=== PATIENT | female | born 1985 | race Caucasian/White ===

== ENCOUNTER → 2020-02-18 13:25 | Outpatient (BNVA) | payer OTHER, SELFPAY | PROVIDERS: Visit Provider Nurse Practitioner Family | DX: Z20.828 Contact with and (suspected) exposure to other viral communicable diseases (principal) | CPT/HCPCS: 87635 ==

== ENCOUNTER 2021-01-11 07:51 | Outpatient (CLI) | payer OTHER, SELFPAY ==
--- NOTE | 2021-01-11 08:00 | USCV_ITS ---
Zonia Trimble Age: 35 Gender: F : 1985 Exam Date: 01/11/2021 08:18 Ordering Phys: Darin Sepulveda MD Technologist: Exam Location: [facility] [place] [facility] [place]ication: rt leg pain HISTORY: Lower extremity pain. PROCEDURES: Venous duplex imaging was performed in only the right lower extremity. The following venous structures were evaluated: common femoral vein, profunda vein, proximal portion of the greater saphenous vein, superficial femoral vein, and the popliteal vein. In addition, the posterior tibial and peroneal trunk were evaluated. On the right side, the common femoral, superficial femoral, profunda femoral, popliteal, posterior tibial, greater saphenous veins and the peroneal trunk were identified and interrogated in the standard fashion. These veins were found to be easily compressible with spontaneous blood flow. No evidence of insufficiency or thrombus noted. FINDINGS: Normal 2-D Doppler and augmentation and compressibility throughout the lower extremity venous structures. Additional imaging through the proximal calf veins also reveals no thrombus. Limited evaluation of the greater saphenous vein is patent with no thrombus.. CONCLUSIONS No evidence of right lower extremity DVT. Js Dugan MD (Electronically Signed) Final Date: 12 January 2021 09:46 S
== END 2021-01-11 07:52 | disposition home or self-care (01) ==
LOC: RAD 07:55
PROVIDERS: PCP Family Medicine; Visit Provider Family Medicine
DX: M79.89 Other specified soft tissue disorders (principal); M79.604 Pain in right leg
CPT/HCPCS: 93971

== ENCOUNTER → 2021-03-18 12:31 | Outpatient (BNVA) | payer OTHER, SELFPAY | PROVIDERS: PCP Family Medicine; Visit Provider Registered Nurse Neonatal Intensive Care | DX: Z20.822 Contact with and (suspected) exposure to COVID-19 (principal) | CPT/HCPCS: 87400; 87635 ==

== ENCOUNTER → 2021-10-26 15:44 | Outpatient (BNVA) | payer OTHER, SELFPAY | PROVIDERS: PCP Family Medicine; Visit Provider Registered Nurse Neonatal Intensive Care | DX: B34.9 Viral infection, unspecified (principal); Z20.822 Contact with and (suspected) exposure to COVID-19 | CPT/HCPCS: 87400; 87635 ==

== ENCOUNTER 2021-12-29 12:39 | Emergency (ER) | payer OTHER, SELFPAY ==
[2021-12-29 12:44] VITALS: BP 109/70; PULSE 78; RESP 16; TEMP 36.9; O2SAT 99; BMI 20.9
--- NOTE | 2021-12-29 12:56 | W.ED.ABDPA2 ---
HPI - Abdominal Pain General: Chief Complaint: Abdominal Pain Stated Complaint: ABD pains Time Seen by Provider: 12/29/21 12:52 Source: patient Mode of arrival: ambulatory History of Present Illness: 56-year-old female presents emergency room complaining of left lower quadrant pain pelvic pain that began 3 days ago. Increases with cough or movement. Bowel and bladder function have been normal. She denies any dysuria urgency or frequency. Her last menstrual period was normal and began in the late November. She states she is due within the next week to have her next menstrual period. She previously has had a tubal ligation. MD elicited complaint: abdominal pain (Left pelvic pain) Onset (ago): day(s) (3) Pain Consistency: intermittent Location: Pelvis (Left) Severity: moderate Quality: cramping Radiation: other (Left pelvis) Migration to: no migration Exacerbating factors: movement Relieving factors: nothing Associated Symptoms: Denies anorexia, belching, bloating, change in bowel habits, change in stool character, chills, coffee ground emesis, constipation, GI cramping, diarrhea, dyspepsia, dysuria, excessive flatus, fever(s), heartburn, hematochezia, hematuria, hematemesis, fecal incontinence, loose stools, melena, nausea, poor appetite, syncope and vomiting Related Data: Date of Last Menstrual Period: 12/03/21 Review of Systems Const: Denies: fever(s), chills, fatigue or malaise ENMT: Denies: throat pain, ear or mastoid pain, nasal discharge or nasal congestion Card: Denies: syncope Resp: Denies: dyspnea, productive cough or non-productive cough GI: Reports: abdominal pain; Denies: nausea, vomiting, hematemesis, coffee ground emesis, heartburn, diarrhea, constipation, bloating, GI cramping, belching, excessive flatus, fecal incontinence, change in bowel habits, change in stool character, hematochezia or melena : Reports: pelvic pain; Denies: flank pain, difficulty voiding, dysuria, urinary frequency, urinary urgency or hematuria Skin/Breast: Denies: rash or pruritus PFS ED PFSH: Medical History Anxiety Family conflict Marital conflict Psychiatric care Social History (Reviewed 12/25/21 @ 12:56 by Hilaria Jimenez Smoking and tobacco status: never smoked Female Reproductive History: Date of last menstrual period: 12/03/21 Physical Exam Const: COMMON NORMALS: no acute distress GENERAL APPEARANCE: cooperative and comfortable ORIENTATION/CONSCIOUSNESS: Yes awake, Yes oriented to person, Yes oriented to place and Yes oriented to time HENMT: COMMON NORMALS: normocephalic, atraumatic and hearing grossly normal bilaterally HEAD & SCALP: normocephalic and atraumatic Neck/C-Spine: COMMON NORMALS: full ROM, no lymphadenopathy, supple and no JVD Lymph: LYMPHATIC: no lymphadenopathy noted and no lymphedema noted Resp: COMMON NORMALS: normal respiratory effort, No retractions, No use of accessory muscles and clear to auscultation bilaterally AUSCULTATION: clear to auscultation bilaterally Cardio: COMMON NORMALS: no JVD, regular rate, regular rhythm and No murmurs present (Cardio) RATE: regular rate RHYTHM: regular rhythm GI: COMMON NORMALS: Soft to palpation and No hepatosplenomegaly present AUSCULTATION: Yes normoactive bowel sounds PALPATION: Yes Soft to palpation, No Tenderness to palpation present (GI), No Guarding due to palpation present (GI) and Yes No hepatosplenomegaly present Extremity: COMMON NORMALS: normal to inspection, capillary refill normal, no clubbing, cyanosis or edema, no calf tenderness and no pedal edema Neuro: SENSORIUM/ORIENTATION: Yes oriented to person, Yes oriented to place and Yes oriented to time Skin: COMMON NORMALS: no rashes or lesions noted GENERAL SKIN EXAM: no rashes or lesions noted Course Vital Signs: Vital signs: Vital Signs Temperature 98.4 F 12/29/21 12:44 Pulse Rate 88 12/29/21 14:22 Respiratory Rate 18 12/29/21 14:22 Blood Pressure 119/83 12/29/21 14:22 Pulse Oximetry 99 12/29/21 14:22 Oxygen Delivery Me thod 12/29/21 14:22 MDM - Abdominal Pain Medical Decision Making Ultrasound negative abdominal exam unremarkable White count normal. Patient has follow-up appointment with primary care later this week discharged from here no emergent findings made. Medical Records I reviewed the patient's medical records. Lab Data I reviewed the patient's lab results. : 12/29/21 13:11 12/29/21 13:11 Labs/Radiology: Laboratory Results WBC 5.5 10^3/uL (4.0-10.0) 12/29/21 13:11 RBC 4.42 10^6/uL (4.1-5.3) 12/29/21 13:11 Hgb 13.1 g/dL (11.5-15.3) 12/29/21 13:11 Hct 39.7 % (37.0-47.0) 12/29/21 13:11 MCV 89.8 fl (81-99) 12/29/21 13:11 MCH 29.6 pg (28.0-34.0) 12/29/21 13:11 MCHC 33.0 g/dL (30.0-36.0) 12/29/21 13:11 RDW 12.8 % (12.1-15.1) 12/29/21 13:11 Plt Count 287 10^3/cmm (130-400) 12/29/21 13:11 MPV 9.7 fL (7.4-10.4) 12/29/21 13:11 Neut % (Auto) 50.2 % 12/29/21 13:11 Lymph % (Auto) 39.5 % 12/29/21 13:11 Wells % (Auto) 7.4 % 12/29/21 13:11 Eos % (Auto) 1.6 % 12/29/21 13:11 Baso % (Auto) 1.1 % 12/29/21 13:11 Neut # (Auto) 2.78 10^3/uL (1.8-7.7) 12/29/21 13:11 Lymph # (Auto) 2.2 10^3/uL (0.8-4.8) 12/29/21 13:11 Wells # (Auto) 0.4 10^3/uL (0.2-0.9) 12/29/21 13:11 Eos # (Auto) 0.1 10^3/uL (0.0-0.8) 12/29/21 13:11 Baso # (Auto) 0.1 10^3/uL (0.0-0.1) 12/29/21 13:11 Nucleated RBC % (auto) 0 % 12/29/21 13:11 Nucleated RBCs # 0.0 /100WBC 12/29/21 13:11 Sodium 137 mmol/L (136-145) 12/29/21 13:11 Potassium 3.4 mmol/L (3.5-5.1) L 12/29/21 13:11 Chloride 104 mmol/L (98-107) 12/29/21 13:11 Carbon Dioxide 22 mmol/L (22-29) 12/29/21 13:11 Anion Gap 14.4 (5-19) 12/29/21 13:11 BUN 9 mg/dL (6-20) 12/29/21 13:11 Creatinine 0.8 mg/dL (0.5-0.9) 12/29/21 13:11 GFR Calculation 80.7 mL/min (90-130) L 12/29/21 13:11 Glucose 106 mg/dL (65-115) 12/29/21 13:11 Calculated Osmolality 283 mOsm/kg (285-295) L 12/29/21 13:11 Calcium 8.9 mg/dL (8.5-10.5) 12/29/21 13:11 Total Bilirubin 0.4 mg/dL (0.15-1.2) 12/29/21 13:11 AST 15 U/L (0-32) 12/29/21 13:11 ALT 12 U/L (0-33) 12/29/21 13:11 Alkaline Phosphatase 68 U/L (35-105) 12/29/21 13:11 Total Protein 6.7 g/dL (6.6-8.7) 12/29/21 13:11 Albumin 4.1 g/dL (3.5-5.2) 12/29/21 13:11 Globulin 2.6 g/dL (1.3-4.6) 12/29/21 13:11 Lipase 21 U/L (13-60) 12/29/21 13:11 HCG, Qual Negative (Negative) 12/29/21 13:11 Urine Color Yellow (Yellow) 12/29/21 13:10 Urine Appearance Clear (CLEAR) 12/29/21 13:10 Urine pH 5 (5-7) 12/29/21 13:10 Ur Specific Valentine 1.030 (1.005-1.030) 12/29/21 13:10 Urine Protein Neg (Negative) 12/29/21 13:10 Urine Glucose (UA) Norm (Normal) 12/29/21 13:10 Urine Ketones Negative (Negative) 12/29/21 13:10 Urine Blood Neg (Negative) 12/29/21 13:10 Urine Nitrate Negative (Negative) 12/29/21 13:10 Urine Bilirubin Neg (Negative) 12/29/21 13:10 Urine Urobilinogen Neg mg/dL (Negative) 12/29/21 13:10 Ur Leukocyte Esterase Negative (Negative) 12/29/21 13:10 Discharge Plan Discharge Patient Disposition: Home Clinical Impression: Pelvic pain Condition: Stable Prescriptions: No Action dextroamphetamine-amphetamine 10 mg tablet 10 mg PO QAM 30 Days Qty: 30 0RF mirtazapine 15 mg tablet 15 mg PO .qhs 30 Days Qty: 30 3RF Discharge Orders: Discharge ED (Routine); Ordered 12/29/21 Ordered By: Michele Rodriguez Referrals: Darin Sepulveda MD [Primary Care Provider] - Discharge Diet: Usual diet Discharge Activity: Increase activity as tolerated Patient Instructions: Opioid Safety, Pain Management Coding Level of Care Code ED Contour Stitcher for Chg Fwd Exam Comprehensive
--- NOTE | 2021-12-29 13:03 | USR_ITS ---
PROCEDURE INFORMATION: Exam: US Pelvis, Transvaginal Exam date and time: 12/29/2021 1:27 PM Age: 36 years old Clinical indication: Pelvic pain; Prior surgery; Surgery type: Patient has a history of tubal ligation TECHNIQUE: Imaging protocol: Real-time transvaginal pelvic ultrasound with image documentation. Transvaginal imaging was used for better evaluation of the endometrium, adnexa, and/or cervix. COMPARISON: None FINDINGS: Uterus: Uterus measures 9.0 x 4.7 x 6.2 cm. Endometrium measures 13 mm in diameter, which is upper limits of normal for an actively menstruating female. Cervix: Subcentimeter nabothian cysts. Right ovary/adnexa: Right ovary measures 2.5 x 1.7 x 1.9 cm. Subcentimeter follicles. Right ovarian blood flow demonstrated. Left ovary/adnexa: Left ovary measures 1.8 x 1.6 x 2.0 cm. Subcentimeter follicles. Left ovarian blood flow demonstrated. Intraperitoneal space: No significant free fluid. US/US transvaginal [id number] IMPRESSION: No acute sonographic abnormality in the visualized pelvis.
[2021-12-29 13:14] VITALS: BP 121/82; PULSE 100; RESP 18; O2SAT 100
[2021-12-29] MEDS: lactated ringers 1,000 ML 999 ML IV (13:16)
[2021-12-29 13:17] LABS: Add Urine Microscopic? NO; Charge for UA Resulting for Rev
[2021-12-29 13:24] LABS: Basophils # 0.1 10^3/uL (0.0-0.1); Basophils % 1.1 %; Eosinophils # 0.1 10^3/uL (0.0-0.8); Eosinophils % 1.6 %; Hematocrit 39.7 % (37.0-47.0); Hemoglobin 13.1 g/dL (11.5-15.3); Lymphocytes # 2.2 10^3/uL (0.8-4.8); Lymphocytes % 39.5 %; Mean Corpuscular Hemoglobin 29.6 pg (28.0-34.0); Mean Corpuscular Volume 89.8 fl (81-99); Mean Platelet Volume 9.7 fL (7.4-10.4); Monocytes # 0.4 10^3/uL (0.2-0.9); Monocytes % 7.4 %; Neutrophils # 2.78 10^3/uL (1.8-7.7); Neutrophils % 50.2 %; Nucleated Red Blood Cells % 0 %; Platelet Count 287 10^3/cmm (130-400); Red Blood Count 4.42 10^6/uL (4.1-5.3); Red Cell Distribution Width 12.8 % (12.1-15.1); White Blood Count 5.5 10^3/uL (4.0-10.0)
[2021-12-29 13:28] LABS: Bilirubin Urine Neg (Negative); Blood Urine Neg (Negative); Glucose Urine UA Norm (Normal); Ketones Urine Negative (Negative); Leukocyte Esterase Urine Negative (Negative); Nitrate Urine Negative (Negative); Protein Urine Neg (Negative); Urine Appearance Clear (CLEAR); Urine Color Yellow (Yellow); Urobilinogen Urine Neg (Negative); pH Urine 5 (5-7)
[2021-12-29 13:53] LABS: HCG, Serum Qual Negative (Negative)
[2021-12-29 14:03] LABS: Alanine Aminotransferase 12 U/L (0-33); Albumin Level 4.1 g/dL (3.5-5.2); Alkaline Phosphatase 68 U/L (35-105); Anion Gap 14.4 (5-19); Aspartate Amino Transferase 15 U/L (0-32); Blood Urea Nitrogen 9 mg/dL (6-20); Calcium 8.9 mg/dL (8.5-10.5); Carbon Dioxide 22 mmol/L (22-29); Chloride 104 mmol/L (98-107); Globulin 2.6 g/dL (1.3-4.6); Glomerular Filtration Rate 80.7 mL/min (90-130); Glucose 106 mg/dL (65-115); Lipase 21 U/L (13-60); Osmolality Calculated 283 mOsm/kg (285-295); Potassium 3.4 mmol/L (3.5-5.1); Sodium 137 mmol/L (136-145); Total Bilirubin 0.4 mg/dL (0.15-1.2); Total Protein 6.7 g/dL (6.6-8.7)
[2021-12-29 14:22] VITALS: BP 119/83; PULSE 88; RESP 18; O2SAT 99
== END 2021-12-29 14:28 | disposition home or self-care (01) ==
PROVIDERS: Emergency Provider Family Medicine; PCP Family Medicine
DX: R10.2 Pelvic and perineal pain (principal)
CPT/HCPCS: 76830; 80053; 81003; 83690; 84703; 85025; 96360; 99284

== ENCOUNTER 2022-01-16 16:04 | Outpatient (CLI) | payer OTHER, SELFPAY ==
--- NOTE | 2022-01-16 16:27 | XRR_ITS ---
PROCEDURE INFORMATION: Exam: XR Chest Exam date and time: 01/16/2022 4:28 PM Age: 36 years old Clinical indication: Other: Abnormal lung sounds TECHNIQUE: Imaging protocol: Radiologic exam of the chest. Views: 2 views. COMPARISON: No relevant prior studies available. FINDINGS: Lungs: Peribronchial thickening. Hyperinflated lungs. No consolidation. Pleural spaces: Unremarkable. No pleural effusion. No pneumothorax. Heart/Mediastinum: Unremarkable. No cardiomegaly. Bones/joints: Unremarkable. XR/XR chest 2V* [id number] IMPRESSION: Peribronchial thickening suggestive of an infectious or inflammatory bronchitis. Hyperinflated lungs.
== END 2022-01-16 16:05 | disposition home or self-care (01) ==
PROVIDERS: PCP Family Medicine; Visit Provider Clinical Nurse Specialist Adult Health
DX: J18.9 Pneumonia, unspecified organism (principal)
CPT/HCPCS: 71046; 87880

== ENCOUNTER → 2023-07-09 10:26 | Outpatient (BNVA) | payer OTHER, SELFPAY | PROVIDERS: PCP Family Medicine; Visit Provider Family Medicine | DX: Z51.81 Encounter for therapeutic drug level monitoring (principal); G25.81 Restless legs syndrome; R10.9 Unspecified abdominal pain; R19.8 Other specified symptoms and signs involving the digestive system and abdomen; R19.7 Diarrhea, unspecified | CPT/HCPCS: 80053; 83735; 85025 ==

== ENCOUNTER → 2023-08-11 15:05 | Outpatient (BNVA) | payer OTHER, SELFPAY | PROVIDERS: PCP Family Medicine; Visit Provider Family Medicine | DX: G25.81 Restless legs syndrome (principal) | CPT/HCPCS: 82607 ==

== ENCOUNTER 2023-12-06 11:08 | Emergency (ER) | payer OTHER, SELFPAY ==
[2023-12-06 11:33] VITALS: BP 113/78; PULSE 70; RESP 18; TEMP 37.2; O2SAT 100; BMI 19.1
--- NOTE | 2023-12-06 13:00 | XRR_ITS ---
PROCEDURE INFORMATION: Exam: XR Lumbosacral Spine Exam date and time: 12/06/2023 1:12 PM Age: 38 years old Clinical indication: Lumbago; Patient HX: Lower back pain; No known injury TECHNIQUE: Imaging protocol: Radiologic exam of the lumbosacral spine. Views: 2 or 3 views. COMPARISON: No relevant prior studies available. FINDINGS: Bones/joints: Normal. No acute fracture. Normal alignment. Soft tissues: Unremarkable. XR/XR lumbar spine 2-3V* [id number] IMPRESSION: No acute findings.
--- NOTE | 2023-12-06 13:01 | W.ED.BACK ---
HPI - Back Pain/Injury General: Chief Complaint: Back Pain/Injury Stated Complaint: Low back pain Time Seen by Provider: 12/06/23 12:43 History of Present Illness: 38-year-old female who presents with low back pain. The pain has been present for the past week. 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 She was given a shot of steroids and a shot of Toradol few days ago with minimal improvement. She has been taking Tylenol and ibuprofen without improvement. The pain is localized to her lower lumbar and right paraspinous muscle region. She has no radiation of the pain. She has no associated abdominal pain. No hematuria, dysuria or increased urinary frequency. No prior history of kidney stones. She denies loss of bowel or bladder control. She denies extremity weakness. She is scheduled to see her primary care provider this upcoming week. Related Data Previous Rx's Medication Instructions Recorded omeprazole 40 mg capsule,delayed 40 mg PO DAILY #30 caps 07/09/23 release ibuprofen 800 mg tablet 800 mg PO Q8H PRN pain #30 tabs 09/06/23 buspirone 5 mg tablet 5 mg PO BID PRN anxiety #60 tabs 09/29/23 citalopram 10 mg tablet 10 mg PO DAILY #30 tabs 10/15/23 doxylamine succinate 25 mg tablet 25 mg PO .QHS PRN sleep #30 tabs 10/15/23 (Sleep Aid (doxylamine)) ondansetron HCl 4 mg tablet 4 mg PO Q8H PRN nausea and 10/17/23 vomiting #30 tabs ropinirole 0.25 mg tablet 0.25 mg PO .QHS #30 tabs 10/29/23 zolpidem 12.5 mg tablet,extended 12.5 mg PO .QHS #30 tabs 10/29/23 release,multiphase (Ambien CR) cyclobenzaprine 10 mg tablet 10 mg PO TID PRN muscle spasm #30 12/06/23 tabs hydrocodone 5 mg-acetaminophen 325 1 tab PO Q4H PRN pain #14 tabs 12/06/23 mg tablet ibuprofen 800 mg tablet 800 mg PO TID #30 tabs 12/06/23 prednisone 50 mg tablet 50 mg PO DAILY 7 days #7 tabs 12/06/23 Allergies Allergy/AdvReac Type Severity Reaction Status Date / Time No Known Allergies Allergy Verified 09/29/23 14:47 Review of Systems General: Reports: 10 or more systems reviewed and unremarkable except in HPI and below PFSH ED PFSH: Medical History HLA B27 (HLA B27 positive) Anxiety Family conflict Marital conflict Surgical History History of bilateral tubal ligation Family History Father GERD (gastroesophageal reflux disease) Social History Smoking and tobacco/nicotine status: never used tobacco/nicotine Alcohol intake: never Substance/Drug Use: current Other substance/drug use details: Patient has a medical card. Physical Exam Const: COMMON NORMALS: healthy appearing and well nourished Resp: COMMON NORMALS: normal respiratory effort and clear to auscultation bilaterally AUSCULTATION: clear to auscultation bilaterally Cardio: COMMON NORMALS: S1 normal heart sound present and S2 normal heart sound present HEART SOUNDS: S1 normal heart sound present and S2 normal heart sound present GI: COMMON NORMALS: Normal to inspection, nondistended, normoactive bowel sounds present, Soft to palpation, non-tender and no masses PALPATION: Yes Soft to palpation Back/Pelvis: OTHER: No tenderness in the lumbar spine or paraspinous muscular region bilaterally. No SI joint tenderness. Negative Baldomero's test. Negative straight leg raise bilaterally. Motor function intact bilaterally in her upper and lower extremities. Intact sensation. Deep tendon reflexes are normal. Extremity: OTHER: Bilateral lower extremity strength intact. No tenderness, no swelling or deformity. Intact distal pulses. Neuro: OTHER: Normal upper and lower extremity motor and sensory function, normal reflexes Course ED course: Patient has been given IM morphine in the emergency department with improvement of her pain. X-rays of the lumbosacral spine have been obtained and are negative for acute findings. Will discharge the patient with prednisone to take 50 mg daily for 7 days. Of also given her Flexeril to take 3 times daily as needed for muscle spasm. Ibuprofen 800 mg 3 times daily for inflammation and [place] 5 to take every 4-6 hours as needed for severe pain. Have instructed her to rest. Avoid lifting over 20 pounds. Return if her symptoms are worsening. Follow-up this next week with her primary care provider. Return if she has increased pain, weakness, loss of bowel or bladder control Vital Signs: Vital signs: Vital Signs Temperature 98.9 F 12/06/23 11:33 Pulse Rate 70 12/06/23 11:33 Respiratory Rate 16 12/06/23 13:19 Blood Pressure 113/78 12/06/23 11:33 Pulse Oximetry 97 12/06/23 13:19 Oxygen Delivery Me thod Room Air 12/06/23 11:33 MDM - Back Pain/Injury Medical Decision Making Given the patient's history of being positive for HLA-B27, concern for possible ankylosing spondylitis. Patient denies trauma. Will obtain screening lumbosacral spine x-rays for possible ankylosing spondylitis. Will give her IM morphine for pain. Plan for discharge with steroids, anti-inflammatories, muscle relaxants and pain medications. Labs Radiology Impressions Lumbar Spine X-Ray 12/06/23 13:00 IMPRESSION: No acute findings. All radiology interpretation(s) finalized by discharge ED provider radiology interpretation(s): X-rays of the lumbosacral spine have been obtained and primary to rotation are negative for acute fracture or subluxation. Per radiology, the x-rays are negative as well. Discharge Plan Discharge Patient Disposition: Home Clinical Impression: Low back pain, HLA B27 (HLA B27 positive) Condition: Stable Prescriptions: New cyclobenzaprine 10 mg tablet 10 mg PO TID PRN (Reason: muscle spasm) Qty: 30 0RF prednisone 50 mg tablet 50 mg PO DAILY 7 Days Qty: 7 0RF ibuprofen 800 mg tablet 800 mg PO TID Qty: 30 0RF hydrocodone-acetaminophen 5-325 mg tablet 1 tab PO Q4H PRN (Reason: pain) Qty: 14 0RF No Action omeprazole 40 mg capsule,delayed release(DR/EC) 40 mg PO DAILY Qty: 30 3RF Sleep Aid (doxylamine) 25 mg tablet 25 mg PO .QHS PRN (Reason: sleep) Qty: 30 2RF citalopram 10 mg tablet 10 mg PO DAILY Qty: 30 3RF buspirone 5 mg tablet 5 mg PO BID PRN (Reason: anxiety) Qty: 60 0RF ibuprofen 800 mg tablet 800 mg PO Q8H PRN (Reason: pain) Qty: 30 0RF ondansetron HCl 4 mg tablet 4 mg PO Q8H PRN (Reason: nausea and vomiting) Qty: 30 2RF zolpidem [Ambien CR] 12.5 mg tablet,ext release multiphase 12.5 mg PO .QHS Qty: 30 1RF ropinirole 0.25 mg tablet 0.25 mg PO .QHS Qty: 30 1RF Discharge Orders: Discharge ED (Routine); Ordered 12/06/23 Ordered By: Jessenia Hopkins Referrals: Darin Sepulveda MD [Primary Care Provider] - Discharge Diet: Advance as tolerated Discharge Activity: Increase activity as tolerated Patient Instructions: Acute Low Back Pain (ED), Opioid Safety, Pain Management Activity Restrictions/Additional Instructions: Home to rest. Take the medications as prescribed. Ice to the affected areas. Take the prednisone daily in the morning. Take the ibuprofen 3 times daily. Take the Flexeril 3 times daily as needed for muscle spasm. You can take the [place] every 4-6 hours as needed for severe pain. Return if you are having increased pain, weakness, loss of bowel or bladder control. Follow-up this next week with your primary care provider Stand Alone Forms: Work/School Release Coding Level of Care Code ED Errand Runner for [place]
[2023-12-06 13:19] VITALS: RESP 16; O2SAT 97
[2023-12-06] MEDS: morphine 4 mg/mL SDV 1 mL IM (13:19)
== END 2023-12-06 14:50 | disposition home or self-care (01) ==
PROVIDERS: Emergency Provider Emergency Medicine; PCP Family Medicine
DX: M54.50 Low back pain, unspecified (principal)
CPT/HCPCS: 72100; 96372; 99284; J2270

== ENCOUNTER 2024-07-26 13:30 | Outpatient (CLI) | payer OTHER, SELFPAY ==
--- NOTE | 2024-07-26 14:03 | MM_ITS ---
WS: [id number] BILATERAL 3D TOMOSYNTHESIS DIGITAL DIAGNOSTIC MAMMOGRAPHY WITH CAD CLINICAL INFORMATION: LT BREAST LUMP 6:00 HISTORY: LEFT breast lump COMPARISON: Baseline TECHNIQUE: Bilateral CC, MLO, and ML views. FINDINGS: The breasts are composed of heterogeneous fibroglandular density, which can limit the detection of small underlying mass lesions. Palpable marker inferior LEFT breast. Dense Parenchymal tissue. Nodularity central LEFT breast. ULTRASOUND BREAST LEFT TECHNIQUE: Ultrasound left breast focused area of concern. CLINICAL INFORMATION: LT BREAST LUMP 6:00 FINDINGS: Ultrasound LEFT breast at the 6 o'clock position inferior quadrant 4 cm from the nipple. Ultrasound performed from the 8 to 4 o'clock position. Tiny cyst at the 6 o'clock position 2 cm from the nipple measuring 7 x 2 x 4 mm. No other suspicious abnormalities. Recommend return to annual screening mammography. MM/MM diag BI tomosynthesis [id number] IMPRESSION: DENSITY: The breasts are heterogeneously dense, which may obscure small masses. BI-RADS: 2 - Benign FOLLOW UP: 1 Year Follow-up Recommend return to annual screening mammography.
== END 2024-07-26 13:31 | disposition home or self-care (01) ==
PROVIDERS: PCP Family Medicine; Visit Provider Advanced Practice Midwife
DX: N63.25 Unspecified lump in the left breast, overlapping quadrants (principal); R92.333 Mammographic heterogeneous density, bilateral breasts
CPT/HCPCS: 76642; 77062; G0279

== ENCOUNTER 2024-10-22 16:40 | Emergency (ER) | payer OTHER, SELFPAY ==
--- OUTSIDE RECORDS SUMMARY | 2024-10-22 16:46 | XMS_ITS | Data Portability ---
Author Organization [facility]atunde Hung [facility] Address [address] [place] [address] Care Team Providers Care News Operations Manager Name Role Phone SHYSHAUNA SANCHEZ Primary Care Provider Assessment No assessment recorded. Plan of Treatment Reminders Order Date Submit Date Provider Last Modified By Organization Details Last Modified Time Details Appointments ACUTE VISIT 2024 03:40P M WALK-IN Not available Not available Not available Lab rapid flu (A+B), PCR 2023 024 [facility]), [address] [place], [address], 05/12/2023 19:10:16 SARS CoV 2 RNA, QL, nasophary nx 2023 024 [facility] ([facility]), [address] [place], [address], 05/12/2023 19:10:17 SARS CoV 2 RNA, QL, nasophary nx 2022 023 swilkening [facility] ([facility]), [address] [place], [address], 12/12/2022 10:42:52 Referral None recorded. Procedures None recorded. Surgeries None recorded. Imaging XR, elbow, 2 view 2023 024 JOSHUA Not available 04/05/2024 09:06:38 Medication Orders ibuprofen 800 mg tablet 2023 024 [facility], [address], [place], [address], 04/02/2024 10:32:31 promethaz ine-DM 6.25 mg-15 mg/5 mL oral syrup 2023 024 [facility], [address], [place], [address], 04/02/2024 09:53:12 benzonata te 100 mg capsule 2022 023 [id number], [address], [place], [place], [id number], 04/02/2024 09:52:32 Patient TargetsNo targets recorded. Patient Instructions Encounter Date Encounter Id Patient Instructions Last Modified By Organization Details Last Modified Time 12/06/2023 [id number] back pain: care instructions Not available 12/07/2023 01:27:35 She was insisten t she needed more than something over the counter. I offered an oral steroid to enhance IM steroid she had Or offered po ibuprofen. She left to go to ER because she insisted she needed something stronger than what I could offer Not available 12/06/2023 12:10:41 Reason for Referral None Reported. Results Created Date Observation Date Name Description Value Unit Range Abnormal Flag Note LastModifiedBy Organization Detail LastModifiedTime 12/13/1912/12/2022 SARS CoV 2 RNA, QL, nasop haryn x COVID negati ve Not Available [facility]) [address] [place], [address], 12/12/2022 10:27:14 05/12/19 24 05/12/2023 SARS CoV 2 RNA, QL, nasop haryn x COVID negati ve Not Available [facility] ([facility]) [address] [place], [address], 05/12/2023 18:48:29 05/12/19 24 05/12/2023 rapid flu (A+B) , PCR Influenza A negati ve Not Available [facility] ([facility]) [address] [place], [address], 05/12/2023 18:23:10 05/12/19 24 05/12/2023 rapid flu (A+B) , PCR Influenza B negati ve Not Available [facility] ([facility]) [address] [place], [address], 05/12/2023 18:23:10 04/05/20 24 04/02/2024 XR, elbow , 2 view No observ ation record ed. [email or web address] [address], [place], [address], 04/05/2024 11:56:30 Result Notes None recorded. Problems Name Problem SNOMED Code Status Onset Date Resolution Date Notes Provider Name and Address Organization Details Recorded Time History of tubal ligation [id number] Active 2021 Tubal Ligation; 11/19/10; 2 12:29PM by Glen Montgomery, Office Visit; Promoted; acuity set as *; STATUS POST TUBAL LIGATION; Recorded 2 12:28PM by Glen Montgomery, Office Visit; Promoted; acuity set as *; Not Available [facility] 03:08:23 Bronchitis 76558059 Active 2022 Sean Reynolds MD [address] [place], [address] , [facility] 3 16:50:55 Problem Notes None recorded. Procedures Surgical History Date Name Laterality Status Provider Name and Address Organization Details Recorded Time Tubal Ligation completed Charline Gupta [facility] 12/06/2023 11:36:34 Imaging Results None recorded. Procedure Notes None recorded. Medical Equipment None Reported. Allergies No known drug allergies Medications Name Sig Start Date Stop Date Status Note LastModified by Organization Details LastModified Time cyclobenz aprine 10 mg tablet TAKE 1 TABLET BY MOUTH THREE TIMES DAILY NEEDED MUSCLE SPASMS 10/22 completed Not Available Not Available Not Available fluconazo le 100 mg tablet TAKE 1 TABLET BY MOUTH EVERY 72 HOURS 04/02 completed Not Available Not Available Not Available buspirone 5 mg tablet TAKE 1 TABLET BY MOUTH TWICE DAILY NEEDED FOR ANXIETY 10/22 completed Not Available Not Available Not Available promethaz ine-DM 6.25 mg-15 mg/5 mL oral syrup Take 5 mL every 4 hours by oral route as needed for 5 days. 04/02 completed Not Available Not Available Not Available doxycycli ne hyclate 100 mg capsule TAKE 1 CAPSULE BY MOUTH TWICE DAILY FOR 7 DAYS 04/02 completed Not Available Not Available Not Available clindamyc in HCl 300 mg capsule TAKE 1 CAPSULE BY MOUTH EVERY 6 HOURS FOR 7 DAYS 04/02 completed Not Available Not Available Not Available ibuprofen 800 mg tablet TAKE 1 TABLET BY MOUTH THREE TIMES DAILY NEEDED FOR 5 DAYS active Not Available Not Available No t Available fluconazo le 150 mg tablet TAKE 1 TABLET BY MOUTH 1 TIME 04/02 completed Not Available Not Available Not Available citalopra m 10 mg tablet TAKE 1 TABLET BY MOUTH ONCE DAILY 10/22 completed Not Available Not Available Not Available hydrocodo ne 5 mg-acetam inophen 325 mg tablet TAKE 1 TABLET BY MOUTH EVERY 4 HOURS NEEDED FOR PAIN 10/22 completed Not Available Not Available Not Available ondansetr on HCl 4 mg tablet TAKE 1 TABLET BY MOUTH EVERY 8 HOURS NEEDED FOR NAUSEA AND VOMITING active Not Available Not Available No t Available prednison e 20 mg tablet Take 1 tablet every day by oral route for 5 days. 04/02 completed Not Available Not Available Not Available dextroamp hetamine- amphetami ne 10 mg tablet TAKE 1 TABLET BY MOUTH EVERY MORNING 04/02 completed Not Available Not Available Not Available clonazepa m 0.5 mg tablet active Not Available Not Available Not Available acyclovir 400 mg tablet 10/22 completed Not Available Not Available Not Available peg-elect rolyte solution 420 gram oral solution USE DIRECTED WITH COLONOSO PY PREP INSTRUCT IONS 10/22 completed Not Available Not Available Not Available omeprazol e 40 mg capsule,d elayed release TAKE 1 CAPSULE BY MOUTH ONCE DAILY 10/22 completed Not Available Not Available Not Available citalopra m 20 mg tablet 10/22 completed Not Available Not Available Not Available ropinirol e 0.25 mg tablet TAKE 1 TABLET BY MOUTH EVERY DAY AT BEDTIME active Not Available Not Available No t Available benzonata te 100 mg capsule TAKE 1 CAPSULE BY MOUTH THREE TIMES DAILY FOR 10 DAYS NEEDED 04/02 completed Not Available Not Available Not Available prednison e 50 mg tablet TAKE 1 TABLET BY MOUTH DAILY 10/22 completed Not Available Not Available Not Available dextroamp hetamine- amphetami ne ER 10 mg 24hr capsule,e xtend release TAKE 1 CAPSULE BY MOUTH EVERY MORNING 04/02 completed Not Available Not Available Not Available hydroxyzi ne HCl 25 mg tablet active Not Available Not Available No t Available zolpidem 5 mg tablet TAKE 1 TABLET BY MOUTH EVERY NIGHT AT BEDTIME 04/02 completed Not Available Not Available Not Available mirtazapi ne 15 mg tablet TAKE 1 TABLET BY MOUTH EVERY NIGHT AT BEDTIME 04/02 completed Not Available Not Available Not Available levofloxa asif 500 mg tablet TAKE 1 TABLET BY MOUTH DAILY 04/02 completed Not Available Not Available Not Available cefdinir 300 mg capsule TAKE 1 CAPSULE BY MOUTH EVERY 12 HOURS 04/02 completed Not Available Not Available Not Available dicyclomi ne 10 mg capsule TAKE 1 CAPSULE BY MOUTH THREE TIMES DAILY NEEDED FOR ABDOMINA L PAIN 10/22 completed Not Available Not Available Not Available Ambien 10 mg tablet Take 1 tablet every day by oral route. 10/22 completed Not Available Not Available Not Available metoclopr amide 10 mg tablet TAKE 1 TAB BY MOUTH INSTRUCT ED PER COLONOSC OPY PREP 10/22 completed Not Available Not Available Not Available amoxicill in 875 mg-potass ium clavulana te 125 mg tablet TAKE 1 TABLET BY MOUTH TWICE DAILY 04/02 completed Not Available Not Available Not Available zolpidem ER 12.5 mg tablet,ex tended release,m ultiphase TAKE 1 TABLET BY MOUTH EVERY DAY AT BEDTIME active Not Available Not Available No t Available Benadryl Allergy at bedtime 04/02 completed 0; Recorded 12/30/19 12:29PM by Glen Montgomery, Office Visit; Not Available Not Available Not Available Celexa 10/22 completed Not Available Not Available Not Available clonazepa m active Not Available Not Available Not Available ondansetr on q 6-8 h prn 04/02 completed Called in to [facility]. EL/AT; [address]; Recorded 12/30/19 12:29PM by Glen Montgomery (Authori jennifer through TAMARA Walker), Office Visit; Refill Quantity : 0; Not Available Not Available Not Available Lexapro active Not Available Not Avail able Not Available Vitals Date Recorded Body height Body mass index (BMI) Body weight Body temperature Respiratory rate Systolic And Diastolic Provider Name and Address Organization Details Last Updated DateTime 4 165.1 cm 20 kg/m2 50458.0 8 g 97.5 [degF] 20 /min 120/70 mm[Hg] Charline [facility] 4 18:31:12 Date Recorded Body height Body mass index (BMI) Body weight Body temperature Heart rate Oxygen saturation Oxygen saturation in Arterial blood by Pulse oximetry Systolic And Diastolic Provider Name and Address Organization Details Last Updated DateTime 5 165.1 cm 21.9 kg/m2 10690.4 g 98.8 [degF] 94 /min 98 % 98 % 122/70 mm[Hg] Rola Orta [facility] 5 17:27:05 Date Recorded Body height Body mass index (BMI) Body weight Respiratory rate Oxygen saturation Oxygen saturation in Arterial blood by Pulse oximetry Heart rate Body temperature Systolic And Diastolic Provider Name and Address Organization Details Last Updated DateTime 4 165.1 cm 19.1 kg/m2 40519.1 2 g 20 /min 97 % 97 % 71 /min 98.4 [degF] 130/70 mm[Hg] Charline [facility] 4 11:42:54 Date Recorded Body height Body mass index (BMI) Body weight Oxygen saturation Oxygen saturation in Arterial blood by Pulse oximetry Heart rate Respiratory rate Body temperature Provider Name and Address Organization Details Last Updated DateTime 3 165.1 cm 19.3 kg/m2 94508.7 1 g 99 % 99 % 94 /min 20 /min 97.8 [degF] ANITRA BOLAND [facility] 3 10:26:19 Date Recorded Body height Body mass index (BMI) Body weight Body temperature Oxygen saturation Oxygen saturation in Arterial blood by Pulse oximetry Heart rate Systolic And Diastolic Provider Name and Address Organization Details Last Updated DateTime 4 165.1 cm 20.5 kg/m2 13878.8 6 g 98.8 [degF] 98 % 98 % 62 /min 118/72 mm[Hg] Lauren Agustin [facility] 4 09:57:23 Social History Question Answer Notes LastModified by Organizat ion Details LastModified Time Tobacco Smoking Status Never Smoker [facility] 12/06/2023 11:36:25 What Was The Date Of Your Most Recent Tobacco Screening? 10/22/2024 [email or web address] Information not available 10/22/2024 Sex: Unknown Functional Status Question Answer Note LastModified by Organization D etails LastModified Time Do you or have you ever used any other forms of tobacco or nicotine? No [email or web address] Information not available 12/06/2023 Do you or have you ever used any nicotine-free cigarettes, vape, or chewing tobacco? No Information not available 12/06/2023 Mental Status None recorded. Family History Nothing Reported Notes:Non-Contributory Famil y History Medical History No medical history recorded. Gynecological HistoryNo gynecological history recorded. Obstetrics History GPAL:G 0 P 0 0 0 0 Immunizations Vaccine Type Date Status Note Provider Nam e and Address Organization Details Recorded Time Influenza, split virus, trivalent, preservative 8 completed Not Available [facility] 11/02/2022 02:48:25 Past Encounters Encounter ID Performer Location Encounter Start Date Encounter Closed Date Diagnosis/Indication Diagnosis SNOMED-CT Code Diagnosis ICD10 Code Diagnosis Note [id number] Sean Reynolds MD [facility] ([facility]) [address] [place] [phone] 12/10/2022 13:45:00 12/10/2022 17:24:03 Bronchitis 19102703 J40 Patient has signs and symptoms suggestive of a viral upper respirator y infection. Encouraged over-the-c ounter medication to help with symptom management but the patient insists on medication to help her feel better we will try steroids to help with symptom management but no antibiotic s will assist in the patient feeling better or achieve quicker recovery. [id number] MARIA R SHELBY [facility] ([facility]) [address] [place] [phone] 12/12/2022 09:32:30 12/21/2022 16:41:38 Cough 05712282 R05.9 Viral syndrome 151329522 B34.9 Reassured with negative COVID test today. Discussed with patient that this is viral and will have to run its course. Can take tylenol/ib uprofen as needed for pain and fevers. Can take benzonatat e PRN for cough. If worsening condition or no improvemen t in 7-10 days, follow up with PCP for further evaluation . If chest pain or severe SOB occurs, go to ED. Patient verbalizes understand ing. [id number] [facility] R [facility] ([facility]) [address] [place] [phone] 05/12/2023 18:16:07 05/14/2023 13:30:37 Cough 20283361 R05.9 COVID negative.F raeann A negative.F raeann B negative. Viral syndrome 462183851 B34.9 Reassured with negative COVID test and negative flu test today. Discussed with patient that this is viral and will have to run its course. Can take tylenol/ib uprofen as needed for pain and fevers. Can take promethazi ne PRN for cough. If worsening condition or no improvemen t in 7-10 days, follow up with PCP for further evaluation . If chest pain or severe SOB occurs, go to ED. Patient verbalizes understand ing. [id number] GETACHEW ALEXIS APRN [facility] ([facility]) [address] [place] [address] 12/06/2023 11:31:51 12/06/2023 12:13:05 Low back pain 019679632 M54.50 [id number] TAMARA CRESPO [facility] ([facility]) [address] [place] [address] 04/02/2024 09:47:39 04/02/2024 10:33:40 Pain of right elbow joint [id number] 5083641 M25.521 Will send to radiology for over read. RICE. Health Concerns Section Related Observation LastModified by Organization Detai ls LastModified Time None Recorded Concern Status LastModified by Organization Details LastModified Time None Recorded Advance Directives Directive None Recorded Payers Insurance Date Sequence Insurance Name Policy Number Policy Bernabe Covered Member ID Bernabe Member ID Guarantor Name 04/02/2024 1 [facility] [employer] [facility] (PPO) Jose Trimble [id number] Zonia Trimble 10/22/2024 1 [facility] [id number] Jose Trimble [id number] Zonia Trimble Notes Date Note Type Note Provider Name and Address Organization Details Recorded Time 12/12/2022 text/html COVID-19 Symptom s August 2019Reported bypatient.COVID-19 Signs and Symptomscough worsening;fever worsening;chills worsening;muscle pain worsening;headache worsening;fatigue worsening;runny nose worsening;congestion worsening Contacts and Exposureclose proximity with person with COVID-19; healthcare-associated exposure Quality:productive cough Associated Symptoms:fatigue;body aches Patient is a 37 year old female who presents to the drive up walk in clinic today for cough, body aches, fever, LIGHT, and runny nose. Symptoms have been ongoing for 4 days. Patient reports a co-worker tested positive for COVID and she would like a COVID test. Patient is feeling better today and has been taking Dayquil. TAMARA COLES-Fl[place] [address] [place], [address], [facility], [place] 12/12/2022 10:42:48 05/12/2023 text/html Upper Respirator y SymptomsReported bypatient.Location:hea d; chest Quality:productive cough;congested Severity:mild Duration:symptoms lasting less than 2 weeks Onset/Timing:gradual Context:sick contact Associated Symptoms:fever;headach e Patient is a 38 year old female who presents to the walk in clinic today for sinus pressure, cough, fever, and LIGHT. Patient reports symptoms started yesterday. She has several co-workers that currently have the flu. Would like a flu test. TAMARA COLES-[place] [address] [place], [address], [facility], [place] 05/12/2023 19:10:55 12/06/2023 text/html Back PainReporte d bypatient.Location:lum bar bilateral;radiation to leg right Quality:sharp Severity:pain level 8/10;interferes with sleep;interferes with work Duration:1 weeks Alleviating Factors:heat; OTC analgesics Aggravating Factors:ambulation; twisting Associated Symptoms:no weakness; no numbness; no tinglingNotes:She has an appointment with primary again Friday. She is supposed to do x-rays Walk In-She has had lower back pain bothering her since last Friday, she has had no known injury. She seen her PCP last Friday and was given a shot, but it has not helped. PCP-Dr.Washburn GETACHEW ALEXIS, [employer] [address] [place], [address], [facility], Don. 12/07/2023 01:29:57 04/02/2024 text/html walk inHit right elbow x 1 month ago on metal cart feels increasing pain over past 3 weeks. has been using IBU for pain. Worse with flexion and extension TAMARA CRESPO [address] [place], [address], [facility], Don. 04/02/2024 10:33:05 OBGyn Episode No OBEpisode recorded.
[2024-10-22 16:49] VITALS: BP 126/75; PULSE 85; RESP 16; TEMP 37.2; O2SAT 95; BMI 21.8
--- NOTE | 2024-10-22 17:43 | ED_ITS ---
HPI - Headache 2 General: Chief Complaint: Headache Stated Complaint: major headache/rt ear pain Time Seen by Provider: 10/22/24 16:52 History of Present Illness: 39-year-old female comes in the emergenc y room with complaint of headache and right ear pain for the last 3 days. No history of migraines no history of trauma. She is awake and alert has no neurologic deficits. Associated symptoms: Deny chest pain, fever(s) or rash Related Data Previous Rx's ?Medication ?Instructions ?Recorded ondansetron HCl 4 mg tablet 4 mg PO Q8H PRN nausea and 10/17/23 vomiting #30 tabs clonazepam 0.5 mg tablet 0.5 mg PO DAILY PRN anxiety #30 05/05/24 tabs zolpidem 12.5 mg tablet,extended 12.5 mg PO .QHS #30 t abs 06/23/24 release,multiphase (Ambien CR) ropinirole 0.25 mg tablet 0.25 mg PO .QHS #30 tabs dextroamphetamine-amphetamine ER 10 mg PO QAM 30 days #30 caps 10/14/24 10 mg 24hr capsule,extend release (Adderall XR) escitalopram oxalate 5 mg tablet 5 mg PO DAILY #30 tab s 10/14/24 hydroxyzine HCl 25 mg tablet 25 mg PO TID PRN anxiety #60 tabs 10/14/24 Allergies Allergy/AdvReac Type Severity Reaction Status Date / Time No Known Allergies Allergy Verified 10/22/24 16:52 Review of Systems 2 Const: Denies: fever(s) or chills Card: Denies: chest pain Resp: Denies: dyspnea GI: Denies: abdominal pain : Denies: dysuria, urinary frequency or urinary urgency Musc: Denies: neck pain or back pain Skin/Breast: Denies: rash Neuro: Reports: headache(s) PFSH ED 2 PFSH: Medical History Psychiatric care Basal cell carcinoma Removed from right m[facility]on - Dr Castillo - 06/2024 HLA B27 (HLA B27 positive) Anxiety Family conflict Marital conflict Surgical History History of bilateral tubal ligation Family History Father GERD (gastroesophageal reflux disease) Mother , on 04/12/2024 No problems noted. Social History Smoking and tobacco/nicotine status: never used tobacco/nicotine Alcohol intake: never Substance/Drug Use: current Other substance/drug use details: Patient has a medical card. Female Reproductive History: Date of last menstrual period: 09/22/24 Physical Exam 2 Const: COMMON NORMALS: no acute distress GENERAL APPEARANCE: cooperative and comfortable ORIENTATION/CONSCIOUSNESS: Yes awake, Yes oriented to person, Yes oriented to place and Yes oriented to time HENMT: COMMON NORMALS: normocephalic, atraumatic and hearing grossly normal bilaterally HEAD & SCALP: normocephalic and atraumatic Neck/C-Spine: OTHER: Solitary tender lymph node overlying the mastoid process No meningeal signs Resp: COMMON NORMALS: normal respiratory effort, No retractions, No use of accessory muscles and clear to auscultation bilaterally AUSCULTATION: clear to auscultation bilaterally Cardio: COMMON NORMALS: regular rate, regular rhythm and No murmurs present (Cardio) RATE: regular rate RHYTHM: regular rhythm Extremity: COMMON NORMALS: normal to inspection, capillary refill normal, no clubbing, cyanosis or edema, no calf tenderness and no pedal edema Neuro: SENSORIUM/ORIENTATION: Yes oriented to person, Yes oriented to place and Yes oriented to time Skin: COMMON NORMALS: no rashes or lesions noted GENERAL SKIN EXAM: no rashes or lesions noted Course 2 Vital Signs: Vital signs: Vital Signs Temperature 99.0 F 10/22/24 16:49 Pulse Rate 85 10/22/24 16:49 Respiratory Rate 16 10/22/24 16:49 Blood Pressure 126/75 10/22/24 16:49 Pulse Oximetry 95 10/22/24 16:49 Oxygen Delivery Me thod Room Air 10/22/24 16:49 MDM - Headache Medical Decision Making Low-grade fever solitary lymph node on the right mastoid process no other lymph nodes palpated. Suspect she has a viral infection. Symptomatic care Lab Data 10/22/24 17:42 Laboratory Results WBC 5.95 10^3/uL (3.29-11.43) 10/22/24 17:42 RBC 4.36 10^6/uL (3.85-5.65) 10/22/24 17:42 Hgb 12.50 g/dL (11.27-16.99) 10/22/24 17:42 Hct 38.7 % (36-47) 10/22/24 17:42 MCV 88.8 fl (85-98) 10/22/24 17:42 MCH 28.7 pg (27-33) 10/22/24 17:42 MCHC 32.3 g/dL (30-55) 10/22/24 17:42 RDW 13.7 % (12.1-15.1) 10/22/24 17:42 Plt Count 302 10^3/cmm (157-399) 10/22/24 17:42 MPV 9.0 fL (7.4-10.4) 10/22/24 17:42 Neut % (Auto) 48.1 % 10/22/24 17:42 Lymph % (Auto) 42.4 % 10/22/24 17:42 [place] % (Auto) 5.9 % 10/22/24 17:42 Eos % (Auto) 2.2 % 10/22/24 17:42 Baso % (Auto) 1.2 % 10/22/24 17:42 Neut # (Auto) 2.87 10^3/uL (1.8-7.7) 10/22/24 17:42 Lymph # (Auto) 2.5 10^3/uL (0.8-4.8) 10/22/24 17:42 [place] # (Auto) 0.4 10^3/uL (0.2-0.9) 10/22/24 17:42 Eos # (Auto) 0.1 10^3/uL (0.0-0.8) 10/22/24 17:42 Baso # (Auto) 0.1 10^3/uL (0.0-0.1) 10/22/24 17:42 Nucleated RBC % (auto) 0 % 10/22/24 17:42 Nucleated RBCs # 0.0 /100WBC 10/22/24 17:42 No radiology studies performed this visit Discharge Plan Discharge Patient Disposition: Home Clinical Impression: Headache, Lymphadenopathy Condition: Stable Prescriptions: No Action hydroxyzine HCl 25 mg tablet 25 mg PO TID PRN (Reason: anxiety) Qty: 60 3RF Rx Instructions: May cause drowsiness escitalopram oxalate 5 mg tablet 5 mg PO DAILY Qty: 30 3RF dextroamphetamine-amphetamine [Adderall XR] 10 mg capsule,extended release 24hr 10 mg PO QAM 30 Days Qty: 30 0RF ondansetron HCl 4 mg tablet 4 mg PO Q8H PRN (Reason: nausea and vomiting) Qty: 30 2RF clonazepam 0.5 mg tablet 0.5 mg PO DAILY PRN (Reason: anxiety) Qty: 30 0RF zolpidem [Ambien CR] 12.5 mg tablet,ext release multiphase 12.5 mg PO .QHS Qty: 30 5RF ropinirole 0.25 mg tablet 0.25 mg PO .QHS Qty: 30 3RF Discharge Orders: Discharge ED (Routine); Ordered 10/22/24 Ordered By: Michele Rodriguez Referrals: Darin Sepulveda MD [Primary Care Provider, Family Practice] Patient Instructions: Opioid Safety, Pain Management, Patient Portal & [place] Instructions Activity Restrictions/Additional Instructions: Thank you for choosing [facility] healthcare needs today. It is very important that you follow up as instructed or that you return to the Emergency Department should you have concerns or if your condition changes or worsens in any way. You were seen in the emergency room with a complaint of a headache and right ear pain. On exam your ear did not show any sign infection there was a solitary lymph node overlying the mastoid process on the right side no other lymph nodes were noted in the neck. Vital signs are otherwise stable. The lymphadenopathy can just be monitored. We also did a white count at your request which was normal. Follow-up with your primary care doctor. Print Language: Polish Coding Level of Care Code ED Ager Tender for [facility] [place]
[2024-10-22 17:57] LABS: Hematocrit 38.7 % (36-47); Hemoglobin 12.50 g/dL (11.27-16.99); Mean Corpuscular HGB Conc 32.3 g/dL (30-55); Mean Corpuscular Hemoglobin 28.7 pg (27-33); Mean Corpuscular Volume 88.8 fl (85-98); Nucleated Red Blood Cells % 0 %; Platelet Count 302 10^3/cmm (157-399); Red Blood Count 4.36 10^6/uL (3.85-5.65); White Blood Count 5.95 10^3/uL (3.29-11.43)
[2024-10-22] MEDS: promethazine 25 mg/mL SDV 1 mL IM (18:00)
== END 2024-10-22 18:24 | disposition home or self-care (01) ==
PROVIDERS: Emergency Provider Family Medicine; PCP Family Medicine
DX: R51.9 Headache, unspecified (principal); R59.1 Generalized enlarged lymph nodes
CPT/HCPCS: 36415; 85025; 96372; 99284; J1885; J2550

== ENCOUNTER 2024-11-29 09:00 | Emergency (ER) | payer OTHER, SELFPAY ==
[2024-11-29 09:19] VITALS: BP 107/73; PULSE 89; TEMP 37.2; O2SAT 99; BMI 21.6
--- NOTE | 2024-11-29 10:20 | XR_ITS ---
WS: [id number] Exam: XR chest 1V portable [id number] Date/Time of Exam: 11/29/2024 10:33 AM Reason For Exam: cough, fever Comparison 01/16/2022. The lungs are fully expanded and clear. Normal cardiomediastinal silhouette and regional bony structures. Skin jewelry superimposing the breasts. XR/XR chest 1V portable [id number] IMPRESSION: 1. Negative chest.
--- NOTE | 2024-11-29 10:31 | ED_ITS ---
HPI - URI/Sore Throat 2 General: Chief Complaint: Upper Respiratory Infection Stated Complaint: fever, cough,nausea Time Seen by Provider: 11/29/24 09:07 Source: patient Mode of arrival: ambulatory Limitations: no limitations History of Present Illness: Patient is a 39-year-old female presents to ED today with a complaint of cough and fevers over the past 48 hours. She describes cough as nonproductive. She is having some throat pain only when coughing. She reports fevers of up to 102. She did take some Tylenol earlier this morning and arrives to the emergency department afebrile. She denies sick contacts. She is not having any chest pain or shortness of breath. She has felt that she has had a decreased appetite and nauseous. She is not having any abdominal pain or vomiting. MD elicited complaint: fever and cough Onset (ago): day(s) Consistency: constant Severity: mild Description of mucous: clear Able to tolerate fluids by mouth: Yes Exacerbating factors: nothing Relieving factors: nothing Associated symptoms: Reports fever(s) and nausea; Deny abdominal pain, chills, chest pain, ear or mastoid pain, headache(s), nasal congestion, sinus pain or vomiting Treatments prior to arrival: acetaminophen Related Data Home Medications ?Medication ?Instructions ?Recorded ?Confirmed acetaminophen 500 mg tablet 1,000 mg PO Q6H PRN Fever Or Pain 11/29/24 11/29/24 (Tylenol Extra Strength) escitalopram oxalate 5 mg tablet 5 mg PO DAILY 5 11/29/24 (Lexapro) Previous Rx's ?Medication ?Instructions ?Recorded ondansetron HCl 4 mg tablet 4 mg PO Q8H PRN nausea and 10/17/23 vomiting #30 tabs zolpidem 12.5 mg tablet,extended 12.5 mg PO .QHS #30 t abs 06/23/24 release,multiphase (Ambien CR) hydroxyzine HCl 25 mg tablet 25 mg PO TID PRN anxiety #60 tabs 10/14/24 ropinirole 0.25 mg tablet 0.25 mg PO .QHS #30 tabs 07/30 dextroamphetamine-amphetamine ER 10 mg PO QAM 30 days #30 caps 11/29/24 10 mg 24hr capsule,extend release (Adderall XR) Allergies Allergy/AdvReac Type Severity Reaction Status Date / Time No Known Allergies Allergy Verified 11/29/24 09:23 Review of Systems 2 Const: Reports: fever(s) and change in appetite; Denies: chills, body aches, change in weight, fatigue or malaise ENMT: Reports: throat pain (only when coughing); Denies: uvular edema, enlarged tonsils, odynophagia, ear or mastoid pain, nasal discharge, nasal congestion or sinus pain Card: Denies: chest pain, lightheadedness, syncope or pre-syncope Resp: Reports: non-productive cough; Denies: dyspnea, wheezing, pain on inspiration or hemoptysis GI: Reports: nausea; Denies: abdominal pain, vomiting or change in bowel habits : Denies: flank pain, difficulty voiding, dysuria, urinary frequency, urinary urgency or urinary hesitancy Musc: Denies: neck pain, back pain, extremity pain, extremity swelling, joint pain, joint swelling or joint redness Skin/Breast: Denies: rash Neuro: Denies: headache(s), numbness in extremities, weakness in extremities, sensory changes or dizziness PFSH ED 2 PFSH: Medical History Psychiatric care Basal cell carcinoma Removed from right restorationist - [facility] - 06/2024 HLA B27 (HLA B27 positive) Anxiety Family conflict Marital conflict Surgical History History of bilateral tubal ligation Family History Father GERD (gastroesophageal reflux disease) Mother , on 04/12/2024 No problems noted. Social History Smoking and tobacco/nicotine status: never used tobacco/nicotine Alcohol intake: never Substance/Drug Use: current Other substance/drug use details: Patient has a medical card. Physical Exam 2 Const: COMMON NORMALS: no acute distress, average body habitus, patient oriented x3, no limitations, healthy appearing, alert and well nourished G ENERAL APPEARANCE: cooperative ORIENTATION/CONSCIOUSNESS: Yes awake, Yes oriented to person, Yes oriented to place and Yes oriented to time HENMT: COMMON NORMALS: normocephalic and atraumatic HEAD & SCALP: normal to inspection, normocephalic and atraumatic FACE & SINUS: normal facial exam MOUTH: Normal oral and palatal mucosa present, lip normal, tongue normal and Normal salivary glands and ducts present THROAT: posterior oropharynx normal and tonsils normal; no uvular edema Eye: COMMON NORMALS: no scleral icterus Neck/C-Spine: COMMON NORMALS: no lymphadenopathy Resp: COMMON NORMALS: normal respiratory effort and clear to auscultation bilaterally AUSCULTATION: clear to auscultation bilaterally Cardio: COMMON NORMALS: regular rate and regular rhythm RATE: regular rate RHYTHM: regular rhythm GI: COMMON NORMALS: Soft to palpation and non-tender PALPATION: Yes Soft to palpation Neuro: COMMON NORMALS: patient oriented x3 SENSORIUM/ORIENTATION: Yes alert, Yes oriented to person, Yes oriented to place and Yes oriented to time Skin: COMMON NORMALS: no rashes or lesions noted GENERAL SKIN EXAM: no rashes or lesions noted Course 2 Vital Signs: Vital signs: Vital Signs Temperature 98.9 F 11/29/24 09:19 Pulse Rate 64 11/29/24 11:19 Blood Pressure 110/68 11/29/24 11:19 Pulse Oximetry 100 11/29/24 11:19 Oxygen Delivery Me thod Room Air 11/29/24 11:07 MDM - URI/Sore Throat Medical Decision Making Patient appears in no acute distress. Vital signs are stable. Blood work is unremarkable. Chest x-ray is negative. COVID/flu/RSV swab obtained and pending at time of discharge. Symptoms most likely secondary to viral URI. Discussed conservative at home therapies. Medical Records I reviewed the patient's medical records. Lab Data I reviewed the patient's lab results. 11/29/24 10:28 11/29/24 10:28 Radiology Impressions Chest X-Ray 11/29/24 10:20 IMPRESSION: 1. Negative chest. Laboratory Results WBC 2.83 10^3/uL (3.29-11.43) L 11/29/24 10:28 RBC 4.77 10^6/uL (3.85-5.65) 11/29/24 10:28 Hgb 13.50 g/dL (11.27-16.99) 11/29/24 10:28 Hct 41.9 % (36-47) 11/29/24 10:28 MCV 87.8 fl (85-98) 11/29/24 10:28 MCH 28.3 pg (27-33) 11/29/24 10: MCHC 32.2 g/dL (30-55) 11/29/24 10: RDW 13.2 % (12.1-15.1) 11/29/24 10: Plt Count 238 10^3/cmm (157-399) 11/29/24 10: MPV 9.6 fL (7.4-10.4) 11/29/24 10: Neut % (Auto) 41.0 % 11/29/24 10: Lymph % (Auto) 45.2 % 11/29/24 10: [place] % (Auto) 12.0 % 11/29/24 10: Eos % (Auto) 0.7 % 11/29/24 10: Baso % (Auto) 0.7 % 11/29/24 10: Neut # (Auto) 1.16 10^3/uL (1.8-7.7) L 11/29/24 10: Lymph # (Auto) 1.3 10^3/uL (0.8-4.8) 11/29/24 10: [place] # (Auto) 0.3 10^3/uL (0.2-0.9) 11/29/24 10: Eos # (Auto) 0.0 10^3/uL (0.0-0.8) 11/29/24 10: Baso # (Auto) 0.0 10^3/uL (0.0-0.1) 11/29/24 10: Nucleated RBC % (auto) 0 % 11/29/24 10: Nucleated RBCs # 0.0 /100WBC 11/29/24 10:28 Sodium 140 mmol/L (136-145) 11/29/24 10:28 Potassium 4.1 mmol/L (3.5-5.1) 11/29/24 10: Chloride 104 mmol/L (98-107) 11/29/24 10: Carbon Dioxide 25 mmol/L (22-29) 11/29/24 10: Anion Gap 15.1 (5-19) 11/29/24 10: BUN 11 mg/dL (6-20) 11/29/24 10:28 Creatinine 0.7 mg/dL (0.5-0.9) 11/29/24 10:28 GFR Calculation 92.7 mL/min (90-130) 11/29/24 10:28 Glucose 92 mg/dL (65-115) 11/29/24 10:28 Calculated Osmolality 289 mOsm/kg (285-295) 11/29/24 10:28 Calcium 8.9 mg/dL (8.5-10.5) 11/29/24 10:28 Total Bilirubin 0.2 mg/dL (0.15-1.2) 11/29/24 10:28 AST 17 U/L (0-32) 11/29/24 10:28 ALT 10 U/L (0-33) 11/29/24 10:28 Alkaline Phosphatase 85 U/L (35-105) 11/29/24 10:28 Total Protein 7.1 g/dL (6.6-8.7) 11/29/24 10: Albumin 4.5 g/dL (3.5-5.2) 11/29/24 10: Globulin 2.6 g/dL (1.3-4.6) 11/29/24 10:28 Influenza A (PCR) Negative (Negative) 11/29/24 10:33 Influenza Type B (PCR) Negative (Negative) 11/29/24 10:33 RSV (PCR) Negative (Negative) 11/29/24 10:33 SARS-CoV-2 (PCR) Negative (Negative) 11/29/24 10:33 All radiology interpretation(s) finalized by discharge Discharge Plan Discharge Patient Disposition: Home Clinical Impression: Viral upper respiratory tract infection with cough Condition: Stable Prescriptions: No Action hydroxyzine HCl 25 mg tablet 25 mg PO TID PRN (Reason: anxiety) Qty: 60 3RF Rx Instructions: May cause drowsiness ondansetron HCl 4 mg tablet 4 mg PO Q8H PRN (Reason: nausea and vomiting) Qty: 30 2RF zolpidem [Ambien CR] 12.5 mg tablet,ext release multiphase 12.5 mg PO .QHS Qty: 30 5RF ropinirole 0.25 mg tablet 0.25 mg PO .QHS Qty: 30 6RF dextroamphetamine-amphetamine [Adderall XR] 10 mg capsule,extended release 24hr 10 mg PO QAM 30 Days Qty: 30 0RF escitalopram oxalate [Lexapro] 5 mg tablet 5 mg PO DAILY acetaminophen [Tylenol Extra Strength] 500 mg Tablet 1,000 mg PO Q6H PRN (Reason: Fever Or Pain) Discharge Orders: Discharge ED (Routine); Ordered 11/29/24 Ordered By: Deena Hooper Referrals: Darin Sepulveda MD [Primary Care Provider, Family Practice] Patient Instructions: Upper Respiratory Infection (DC), Viral Syndrome (ED), Patient Portal & [place] Instructions Activity Restrictions/Additional Instructions: As we discussed, blood work here was unremarkable. Your chest x-ray showing no evidence for pneumonia. Flu/COVID/RSV swab was collected and currently pending. You will be contacted with any positive results. At this time, symptoms most likely are viral and treatment would be geared towards symptomatic relief including Tylenol and/or Ibuprofen as needed for fevers or body aches, rest, and fluids. 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
[2024-11-29 10:41] LABS: Hematocrit 41.9 % (36-47); Hemoglobin 13.50 g/dL (11.27-16.99); Mean Corpuscular HGB Conc 32.2 g/dL (30-55); Mean Corpuscular Hemoglobin 28.3 pg (27-33); Mean Corpuscular Volume 87.8 fl (85-98); Nucleated Red Blood Cells % 0 %; Platelet Count 238 10^3/cmm (157-399); Red Blood Count 4.77 10^6/uL (3.85-5.65); White Blood Count 2.83 10^3/uL (3.29-11.43)
[2024-11-29 10:56] LABS: Alanine Aminotransferase 10 U/L (0-33); Albumin Level 4.5 g/dL (3.5-5.2); Alkaline Phosphatase 85 U/L (35-105); Anion Gap 15.1 (5-19); Aspartate Amino Transferase 17 U/L (0-32); Blood Urea Nitrogen 11 mg/dL (6-20); Calcium 8.9 mg/dL (8.5-10.5); Carbon Dioxide 25 mmol/L (22-29); Chloride 104 mmol/L (98-107); Creatinine Clr Calc Pharmacy 97.4579; Globulin 2.6 g/dL (1.3-4.6); Glucose 92 mg/dL (65-115); Osmolality Calculated 289 mOsm/kg (285-295); Potassium 4.1 mmol/L (3.5-5.1); Sodium 140 mmol/L (136-145); Total Protein 7.1 g/dL (6.6-8.7)
[2024-11-29 11:07] VITALS: BP 110/68; PULSE 68; O2SAT 100
[2024-11-29 11:19] VITALS: BP 110/68; PULSE 64; O2SAT 100
[2024-11-29 11:27] LABS: Respiratory Syncytial Virus Ce NEGATIVE (Negative); SARS-CoV-2 PCR NEGATIVE (Negative)
== END 2024-11-29 11:20 | disposition home or self-care (01) ==
PROVIDERS: Emergency Provider Physician Assistant; PCP Family Medicine
DX: J06.9 Acute upper respiratory infection, unspecified (principal)
CPT/HCPCS: 36415; 71045; 80053; 85025; 87637; 99284